=== PATIENT | female | born 1995 | race Caucasian/White ===

== ENCOUNTER 2017-05-04 21:11 | Emergency (ER) | payer OTHER ==
[~2017-05-04] VITALS: Ht 160 cm; Wt 73.0 kg
[2017-05-05] MEDS ORDERED: KETOROLAC 30MG/ML VIAL IV STA (00:43)
[2017-05-05] MEDS ORDERED: SODIUM CHLORIDE 0.9% 1,000 ML IV ONE (00:43)
[2017-05-05] MEDS ORDERED: FAMOTIDINE 20MG/2ML VIAL IV STA (00:43)
[2017-05-05] MEDS ORDERED: ONDANSETRON HCL 4MG/2ML VIAL IV STA (00:43)
[2017-05-05 00:52] LABS: CLARITY URINE CLEAR (CLEAR); COLOR URINE YELLOW (YELLOW); KETONES URINE NEGATIVE (NEGATIVE); LEUKOCYTE ESTERASE URINE 1+ (NEGATIVE); NITRITE URINE NEGATIVE (NEGATIVE); OCCULT BLOOD URINE 1+ (NEGATIVE); PROTEIN URINE NEGATIVE (NEGATIVE); SPECIFIC GRAVITY URINE 1.021 (1.005-1.030); UROBILINOGEN URINE 0.2 E.U./dL (0.2-1.0)
[2017-05-05 01:04] LABS: *AMPHETAMINES SCREEN URINE NEGATIVE (NEGATIVE); *BARBITURATES SCREEN URINE NEGATIVE (NEGATIVE); *BENZODIAZEPINES SCREEN URINE NEGATIVE (NEGATIVE); *COCAINE SCREEN URINE NEGATIVE (NEGATIVE); CANNABINOID URINE SCREEN NEGATIVE (NEGATIVE); METHADONE URINE SCREEN NEGATIVE (NEGATIVE); OPIATES URINE SCREEN NEGATIVE (NEGATIVE); PHENCYCLIDINE URINE SCREEN NEGATIVE (NEGATIVE)
[2017-05-05 01:14] LABS: BASOPHILS % 0.9 % (0.0-2.0); EOSINOPHILS % 2.6 % (0.0-5.0); HEMATOCRIT. 47.2 % (36.0-48.0); HEMOGLOBIN. 15.9 g/dL (12.0-16.0); LYMPHOCYTES % 25.5 % (20.0-50.0); MEAN CORPUSCULAR HEMOGLOBIN 29.4 pg (28.0-32.0); MEAN CORPUSCULAR VOLUME 87.1 fL (81.0-99.0); MEAN PLATELET VOLUME 9.2 fl (7.4-10.4); MONOCYTES % 7.3 % (2.0-8.0); NEUTROPHILS % 63.7 % (40.0-76.0); PLATELET 307 x1000/uL (130-400); RED BLOOD CELL COUNT 5.42 mill/uL (4.2-5.4); RED CELL DISTRIBUTION WIDTH 13.8 % (11.6-14.6)
[2017-05-05 01:19] LABS: CHLORIDE 103 mEq/L (98-107)
[2017-05-05 01:22] LABS: HCG SCREEN NEGATIVE
[2017-05-05 01:27] LABS: CARBON DIOXIDE 28 mEq/L (21-32); ETHANOL BLOOD < 10 mg/dL
[2017-05-05] MEDS ORDERED: CEFTRIAXONE 1 G PREMIX 50 ML IV SCH (02:00)
[2017-05-05 04:30] VITALS: BP 97/58
== END 2017-05-05 04:43 | disposition home or self-care (01) ==
LOC: ER 21:11
DX: N39.0 Urinary tract infection, site not specified (principal); R31.0 Gross hematuria; R03.0 Elevated blood-pressure reading, without diagnosis of hypertension
CPT/HCPCS: 36415; 74176; 80053; 80305; 81001; 83605; 83690; 84703; 85025; 87077; 87086; 87186; 96361; 96365; 96375; 99285; G0482; J0696; J1885; J2405; J3490; J7030; Z7610

== ENCOUNTER 2023-04-10 00:14 | Emergency (ER) | payer OTHER ==
[~2023-04-10] VITALS: Ht 152.4 cm; Wt 52.0 kg
[2023-04-10 00:32] VITALS: O2SAT 96
[2023-04-10] MEDS ORDERED: KETOROLAC 60MG/2ML VIAL IM STA (00:49)
[2023-04-10 01:59] VITALS: BP 136/82
[2023-04-10] MEDS ORDERED: IBUP-2029 PO (02:41)
[2023-04-10 03:18] VITALS: PULSE 105; RESP 17; TEMP 98
== END 2023-04-10 03:20 | disposition home or self-care (01) ==
LOC: ER 00:14
DX: S63.502A Unspecified sprain of left wrist, initial encounter (principal); M79.602 Pain in left arm; W18.39XA Other fall on same level, initial encounter; Y93.89 Activity, other specified; Y92.89 Other specified places as the place of occurrence of the external cause; Y99.8 Other external cause status
CPT/HCPCS: 81025; 73060; 73090; 73110; 96372; 99284; J1885; Z7610; A4565

== ENCOUNTER 2023-10-25 22:32 | Emergency (ER) | payer OTHER ==
[~2023-10-25] VITALS: Ht 154.9 cm; Wt 54.0 kg
[~2023-10-25 22:32] MED LIST: IBUP-2029 PO
[2023-10-25 23:03] VITALS: BP 151/77; PULSE 86; RESP 15; TEMP 98.1; O2SAT 99
== END 2023-10-25 23:40 | disposition home or self-care (01) ==
LOC: ER 22:32
DX: M54.2 Cervicalgia (principal); V49.49XA Driver injured in collision with other motor vehicles in traffic accident, initial encounter; Y93.89 Activity, other specified; Y92.89 Other specified places as the place of occurrence of the external cause; Y99.8 Other external cause status
CPT/HCPCS: 99281

== ENCOUNTER 2024-04-29 16:27 | Emergency (ER) | payer OTHER ==
[~2024-04-29] VITALS: Ht 157.5 cm; Wt 50.0 kg
[2024-04-29 16:32] VITALS: O2SAT 100
[2024-04-29] MEDS ORDERED: KETOROLAC 15MG/ML VIAL IM ONE (21:15)
[2024-04-29] MEDS ORDERED: NAPR-1176 MT (22:04)
[2024-04-29] MEDS ORDERED: LIDO700A15 TP (22:04)
[2024-04-29] MEDS: KETOROLAC 15MG/ML VIAL IM NR (23:09)
[2024-04-29 23:15] VITALS: BP 123/57; PULSE 77; RESP 18; TEMP 37.16964; O2SAT 99
== END 2024-04-29 23:20 | disposition home or self-care (01) ==
LOC: ER 16:27
DX: S20.219A Contusion of unspecified front wall of thorax, initial encounter (principal); R07.89 Other chest pain; E03.9 Hypothyroidism, unspecified; Z79.1 Long term (current) use of non-steroidal anti-inflammatories (NSAID); V49.49XA Driver injured in collision with other motor vehicles in traffic accident, initial encounter; Y93.89 Activity, other specified; Y92.89 Other specified places as the place of occurrence of the external cause; Y99.8 Other external cause status
CPT/HCPCS: 99283; 71045; 81025; 96372; J1885